=== PATIENT | female | born 1985 | race Caucasian/White ===

== ENCOUNTER 2020-10-11 05:33 | Inpatient (IN) ==
[2020-10-11] MEDS ORDERED: *HR* Midazolam HCl 5 MG/5 ML VIAL IVP ONE ×2 (10:10→10:11)
[2020-10-11] MEDS ORDERED: Artificial Tears SOLN 15 ML BOTTLE BOTH EYES PRN (10:16)
[2020-10-11] MEDS ORDERED: Naloxone 0.4 MG/ML INJ IVP PRN (10:16)
[2020-10-11] MEDS ORDERED: Perflutren Lipid Microsphere 1.3 ML in 0.9 % Sodium Chloride 8.7 ML IVP PRN (10:22)
[2020-10-11] MEDS ORDERED: Vancomycin 0 MG in 0.9 % Sodium Chloride 250 ML IVPB SCH (11:00)
[2020-10-11 11:10] LABS: Basophils % 0.2 %; Eosinophils % 0.1 %; Hematocrit 41.3 % (35.3-44.9); Hemoglobin 14.5 g/dL (11.5-15.4); Immature Granulocytes % 1.2 % (0-4); Lymphocytes # 1.1 K/mcL (0.6-4.6); Lymphocytes % 6.2 %; Mean Corpuscular HGB Conc 35.1 g/dL (31.6-35.5); Mean Corpuscular Hemoglobin 31.1 pg (28.0-33.3); Mean Corpuscular Volume 88.6 fL (83.0-100.0); Mean Platelet Volume 9.7 fL (9.4-12.4); Monocytes # 1.5 K/mcL (0.0-1.3); Monocytes % 8.6 %; Neutrophils # 14.2 K/mcL (1.6-8.9); Nucleated Red Blood Cells 0.2 /100 WBC (0); Platelet Count 160 K/mcL (140-400); Red Blood Count 4.66 M/mcL (3.82-4.97); Red Cell Distribution Width 12.5 % (11.5-14.5); Segmented Neutrophils % 83.7 %
[2020-10-11] MEDS: Artificial Tears SOLN 15 ML BOTTLE BOTH EYES SCH ×4 (11:17→23:38)
[2020-10-11 11:18] LABS: INR 1.9; Prothrombin Time 21.3 Seconds (9.4-12.1)
[2020-10-11] MEDS ORDERED: *HR* Heparin 5,000 UNIT/ML VIAL IVP ONE (11:19)
[2020-10-11] MEDS ORDERED: *HR* Heparin 5,000 UNIT/ML VIAL IVP PRN ×2 (11:19)
[2020-10-11 11:20] LABS: Activated Partial Thrombo Time 30.7 Seconds (26.0-36.0)
[2020-10-11] MEDS: Midazolam HCl 50 MG/100 ML IV.SOLN IVC SCH (11:21)
[2020-10-11 11:24] LABS: Acetaminophen < 10 mcg/mL (10-20); Salicylate < 2.5 mg/dL (15.0-30.0)
[2020-10-11] MEDS ORDERED: *HR* Dextrose 50 % in Water (Vial) 50 ML VIAL ONE (11:29)
[2020-10-11] MEDS ORDERED: Heparin 25,000UNIT/250ML 1/2NS 25,000 UNIT/250 ML IV.SOLN IVC SCH (11:30)
[2020-10-11 11:31] LABS: Alanine Aminotransferase 43 Units/L (7-52); Albumin/Globulin Ratio 1.6 (1.1-2.2); Alkaline Phosphatase 101 Units/L (34-104); Aspartate Amino Transferase 170 Units/L (13-39); BUN/Creatinine Ratio 12 (6-26); Bilirubin,Direct 0.4 mg/dL (0.0-0.2); Bilirubin,Indirect 0.5 mg/dL (0.0-1.0); Bilirubin,Total 0.9 mg/dL (0.3-1.0); Blood Urea Nitrogen 17 mg/dL (6-20); Calcium 8.5 mg/dL (8.6-10.3); Carbon Dioxide 17 mEq/L (23-29); Chloride 114 mEq/L (98-107); Globulin 2.5 g/dL (2.4-3.5); Glucose 56 mg/dL (70-105); Magnesium 1.9 mg/dL (1.6-2.6); Osmolality,Calculated 297 (280-300); Phosphorous 1.3 mg/dL (2.7-4.5); Potassium 3.2 mEq/L (3.5-5.1); Sodium 144 mEq/L (136-145); Total Protein 6.5 g/dL (6.4-8.9); Transferrin 208 mg/dL (203-362); eGFR For African Americans 52 (> 60); eGFR For Non-African Americans 43 (> 60)
[2020-10-11 11:44] LABS: ABG Base Excess -8 mEq/L (-2 to 3); ABG HCO3 16 mEq/L (21-27); ABG Oxygen Saturation 96 % (95-98); ABG PCO2 29 mmHg (35-45); ABG PH 7.35 pH Units (7.32-7.45); ABG PO2 83 mmHg (85-104); ABG TCO2 17 mEq/L (20-26); Blood Gas Modality ASSIST CONTROL; Blood Gas VT 500 cc
[2020-10-11 11:44] LABS: Creatine Kinase 3107 Units/L (30-223)
[2020-10-11 11:47] LABS: Ferritin > 1500 ng/mL (10-120)
[2020-10-11 11:54] LABS: Bacteria,Urine Few per hpf (None-Few); Bilirubin,Urine Negative (Negative); Blood,Urine Large (Negative); Clarity,Urine Turbid (Clear); Color,Urine Yellow (Yellow); Glucose,Urine (UA) Normal (Normal); Ketones,Urine 10 mg/dL (Negative); Leukocyte Esterase,Urine Negative (Negative); Mucus,Urine Few per lpf (None-Few); Nitrite,Urine Negative (Negative); Protein,Urine 100 mg/dL (Neg-Trace); Specific Gravity,Urine 1.025 (1.010-1.025); Squamous Epithelial Cell,Urine Few per hpf (None-Few); Urobilinogen,Urine Normal (Normal)
[2020-10-11] MEDS ORDERED: Dextrose Gel 15 GM/37.5 ML TUBE PO PRN ×2 (12:00)
[2020-10-11] MEDS ORDERED: D5% in Water 1,000 ML IVC PRN (12:00)
[2020-10-11] MEDS ORDERED: *HR* Dextrose 50 % in Water (Vial) 50 ML VIAL IVP PRN (12:00)
[2020-10-11] MEDS ORDERED: Potassium Phosphate 44 MEQ in 0.9 % Sodium Chloride 250 ML IVPB ONE ×2 (12:01→17:37)
[2020-10-11] MEDS: Sodium Bicarbonate 150 MEQ in D5% in Water 1,000 ML IVC SCH ×2 (12:40→18:53)
[2020-10-11] MEDS: Aspirin 81 MG TAB.CHEW PO SCH (12:44)
[2020-10-11 12:48] LABS: Hematocrit 44.9 % (35.3-44.9); Mean Corpuscular HGB Conc 33.4 g/dL (31.6-35.5); Mean Corpuscular Hemoglobin 29.7 pg (28.0-33.3); Mean Corpuscular Volume 88.9 fL (83.0-100.0); Mean Platelet Volume 9.6 fL (9.4-12.4); Platelet Count 139 K/mcL (140-400); Red Blood Count 5.05 M/mcL (3.82-4.97); Red Cell Distribution Width 12.7 % (11.5-14.5); White Blood Count 14.6 K/mcL (4.3-11.1)
[2020-10-11] MEDS: FentaNYL (PF) 1,000 MCG/100 ML IV.SOLN IVC SCH ×2 (13:35→20:02)
[2020-10-11] MEDS: Piperacillin/Tazobactam 3.375 GM in 0.9 % Sodium Chloride Mini Bag 100 ML IVPB SCH ×2 (15:25→23:37)
[2020-10-11 16:45] LABS: BUN/Creatinine Ratio 16 (6-26); Blood Urea Nitrogen 18 mg/dL (6-20); Calcium 7.7 mg/dL (8.6-10.3); Carbon Dioxide 21 mEq/L (23-29); Chloride 113 mEq/L (98-107); Glucose 141 mg/dL (70-105); Osmolality,Calculated 298 (280-300); Potassium 2.7 mEq/L (3.5-5.1); Sodium 142 mEq/L (136-145); eGFR For African Americans > 60 (> 60); eGFR For Non-African Americans 54 (> 60)
[2020-10-11 17:34] LABS: Phosphorous 1.5 mg/dL (2.7-4.5)
[2020-10-11 17:36] LABS: Troponin I 2.77 ng/mL (< 0.04)
[2020-10-11] MEDS ORDERED: Potassium Chloride 40 MEQ, Lidocaine 1% 2 ML in 0.9 % Sodium Chloride 500 ML IVPB ONE (17:37)
[2020-10-11] MEDS ORDERED: Calcium Gluconate 1gm/50mL 1 GM/50 ML BAG IVPB ONE (17:37)
[2020-10-11] MEDS: Famotidine 20 MG/2 ML VIAL IVP SCH (17:39)
[2020-10-11] MEDS: Chlorhexidine Rinse 15 ML MOUTHWASH MM SCH (20:14)
[2020-10-12] MEDS ORDERED: Vancomycin 1,250 MG/262.5 ML IV.SOLN IVPB SCH
[2020-10-12] MEDS: Midazolam HCl 50 MG/100 ML IV.SOLN IVC SCH ×2 (01:02→06:56)
[2020-10-12] MEDS: Sodium Bicarbonate 150 MEQ in D5% in Water 1,000 ML IVC SCH ×2 (01:03→06:35)
[2020-10-12 02:01] LABS: VBG Ionized Calcium 0.79 mmol/L (1.15-1.35)
[2020-10-12 02:12] LABS: Activated Partial Thrombo Time 103.4 Seconds (26.0-36.0)
[2020-10-12 02:13] LABS: INR 4.8
[2020-10-12 02:14] LABS: Prothrombin Time 53.1 Seconds (9.4-12.1)
[2020-10-12] MEDS: FentaNYL (PF) 1,000 MCG/100 ML IV.SOLN IVC SCH ×3 (02:22→17:36)
[2020-10-12 02:24] LABS: BUN/Creatinine Ratio 14 (6-26); Blood Urea Nitrogen 14 mg/dL (6-20); Calcium 6.7 mg/dL (8.6-10.3); Carbon Dioxide 25 mEq/L (23-29); Chloride 107 mEq/L (98-107); Glucose 131 mg/dL (70-105); Magnesium 1.4 mg/dL (1.6-2.6); Osmolality,Calculated 296 (280-300); Phosphorous 3.7 mg/dL (2.7-4.5); Potassium 2.9 mEq/L (3.5-5.1); Sodium 142 mEq/L (136-145); Troponin I 2.35 ng/mL (< 0.04); eGFR For African Americans > 60 (> 60); eGFR For Non-African Americans > 60 (> 60)
[2020-10-12] MEDS ORDERED: Calcium Gluconate 1gm/50mL 1 GM/50 ML BAG IVPB PRN ×2 (02:27→10:25)
[2020-10-12 02:38] LABS: Creatine Kinase 5514 Units/L (30-223)
[2020-10-12] MEDS: Calcium Gluconate 1gm/50mL 1 GM/50 ML BAG IVPB PRN ×2 (02:43→04:00)
[2020-10-12] MEDS: Artificial Tears SOLN 15 ML BOTTLE BOTH EYES SCH ×5 (03:36→19:48)
[2020-10-12 03:53] LABS: Immature Granulocytes % 0.6 % (0-4)
[2020-10-12 03:55] LABS: Hematocrit 26.3 % (35.3-44.9); Hemoglobin 8.7 g/dL (11.5-15.4); Immature Platelets 2.8 % (1.1-6.1); Lymphocytes # 0.9 K/mcL (0.6-4.6); Lymphocytes % 10.8 %; Mean Corpuscular HGB Conc 33.1 g/dL (31.6-35.5); Mean Corpuscular Hemoglobin 30.6 pg (28.0-33.3); Mean Corpuscular Volume 92.6 fL (83.0-100.0); Mean Platelet Volume 9.7 fL (9.4-12.4); Monocytes # 0.2 K/mcL (0.0-1.3); Monocytes % 2.3 %; Neutrophils # 7.5 K/mcL (1.6-8.9); Nucleated Red Blood Cells 0.5 /100 WBC (0); Red Blood Count 2.84 M/mcL (3.82-4.97); Segmented Neutrophils % 86.3 %; White Blood Count 8.7 K/mcL (4.3-11.1)
[2020-10-12 04:21] LABS: Platelet Count 42 K/mcL (140-400)
[2020-10-12 04:23] LABS: Platelet Estimate Decreased (Normal)
[2020-10-12 04:38] LABS: ABG Base Excess 3 mEq/L (-2 to 3); ABG HCO3 24 mEq/L (21-27); ABG Oxygen Saturation 96 % (95-98); ABG PCO2 27 mmHg (35-45); ABG PH 7.56 pH Units (7.32-7.45); ABG PO2 66 mmHg (85-104); ABG TCO2 25 mEq/L (20-26); Blood Gas Modality ASSIST CONTROL; Blood Gas VT 500 cc
[2020-10-12] MEDS: Dexmedetomidine HCl 400 MCG/100 ML MLS IVC SCH ×3 (04:40→21:30)
[2020-10-12] MEDS: Famotidine 20 MG/2 ML VIAL IVP SCH ×2 (05:10→17:18)
[2020-10-12] MEDS: Chlorhexidine Rinse 15 ML MOUTHWASH MM SCH ×2 (07:18→19:48)
[2020-10-12] MEDS: Piperacillin/Tazobactam 3.375 GM in 0.9 % Sodium Chloride Mini Bag 100 ML IVPB SCH ×2 (07:18→15:57)
[2020-10-12] MEDS: Aspirin 81 MG TAB.CHEW PO SCH (07:18)
[2020-10-12] MEDS ORDERED: 0.9 % Sodium Chloride 1,000 ML IVC SCH (10:00)
[2020-10-12 10:06] LABS: VBG Ionized Calcium 0.89 mmol/L (1.15-1.35)
[2020-10-12 10:24] LABS: Activated Partial Thrombo Time 36.9 Seconds (26.0-36.0)
[2020-10-12 10:27] LABS: INR 5.5; Magnesium 1.8 mg/dL (1.6-2.6); Phosphorous 5.5 mg/dL (2.7-4.5)
[2020-10-12] MEDS ORDERED: Magnesium Sulfate 1 GM/102 ML PIGGYBACK IVPB ONE (10:29)
[2020-10-12 10:43] LABS: Creatine Kinase 5917 Units/L (30-223); Lactate Dehydrogenase > 3600 Units/L (140-271)
[2020-10-12 10:44] LABS: Alanine Aminotransferase > 5000 Units/L (7-52); Albumin/Globulin Ratio 1.6 (1.1-2.2); Alkaline Phosphatase 102 Units/L (34-104); Aspartate Amino Transferase > 3000 Units/L (13-39); BUN/Creatinine Ratio 11 (6-26); Bilirubin,Direct 1.4 mg/dL (0.0-0.2); Bilirubin,Indirect 1.3 mg/dL (0.0-1.0); Bilirubin,Total 2.7 mg/dL (0.3-1.0); Blood Urea Nitrogen 14 mg/dL (6-20); Calcium 7.1 mg/dL (8.6-10.3); Carbon Dioxide 28 mEq/L (23-29); Chloride 104 mEq/L (98-107); Globulin 1.9 g/dL (2.4-3.5); Glucose 79 mg/dL (70-105); Osmolality,Calculated 291 (280-300); Sodium 141 mEq/L (136-145); Total Protein 4.9 g/dL (6.4-8.9); eGFR For African Americans 56 (> 60); eGFR For Non-African Americans 46 (> 60)
[2020-10-12] MEDS ORDERED: D5 IVC ONE (11:00)
[2020-10-12] MEDS ORDERED: ACETYLCYSTEINE IVC ONE (11:00)
[2020-10-12] MEDS ORDERED: WATER IVC ONE (11:00)
[2020-10-12] MEDS: D5% in 0.45% NACL w KCl 20 MEQ/1,000 ML MLS IVC SCH ×2 (11:09→17:37)
[2020-10-12 11:25] LABS: Basophils % 0.1 %; Monocytes % 3.5 %
[2020-10-12 11:27] LABS: Hematocrit 41.2 % (35.3-44.9); Hemoglobin 14.6 g/dL (11.5-15.4); Immature Granulocytes % 0.8 % (0-4); Immature Platelets 4.2 % (1.1-6.1); Lymphocytes # 0.8 K/mcL (0.6-4.6); Lymphocytes % 4.5 %; Mean Corpuscular HGB Conc 35.4 g/dL (31.6-35.5); Mean Corpuscular Hemoglobin 31.1 pg (28.0-33.3); Mean Corpuscular Volume 87.7 fL (83.0-100.0); Mean Platelet Volume 10.2 fL (9.4-12.4); Monocytes # 0.6 K/mcL (0.0-1.3); Nucleated Red Blood Cells 0.4 /100 WBC (0); Red Cell Distribution Width 12.6 % (11.5-14.5); Segmented Neutrophils % 91.1 %; White Blood Count 17.1 K/mcL (4.3-11.1)
[2020-10-12] MEDS ORDERED: 0.9 % Sodium Chloride 250 ML ONE (11:29)
[2020-10-12 11:42] LABS: Neutrophils # 15.6 K/mcL (1.6-8.9); Platelet Count 83 K/mcL (140-400)
[2020-10-12] MEDS ORDERED: Acetylcysteine 3,300 MG in D5% in Water 500 ML IVC ONE (12:00)
[2020-10-12 12:07] LABS: Platelet Estimate Slight Decrease (Normal)
[2020-10-12 13:05] LABS: VBG HCO3 25 mEq/L (21-27); VBG PCO2 44 mmHg (41-51); VBG PH 7.36 pH Units (7.32-7.42); VBG PO2 73 mmHg (25-50)
[2020-10-12 13:25] LABS: Amylase 35 Units/L (29-103); Lipase 65 Units/L (11-82)
[2020-10-12 13:55] LABS: Hepatitis B Surface Antigen Nonreactive (Nonreactive)
[2020-10-12] MEDS ORDERED: Norepinephrine 4 MG/254 ML IV.SOLN IVC SCH (14:15)
[2020-10-12 14:24] LABS: Hepatitis B Core IgM Nonreactive (Nonreactive); Hepatitis C Virus Antibody Nonreactive (Nonreactive)
[2020-10-12 14:26] LABS: Hepatitis A Antibody IgM Nonreactive (Nonreactive)
[2020-10-12 15:39] LABS: Albumin 2.6 g/dL (3.5-5.7); Albumin/Globulin Ratio 1.7 (1.1-2.2); Alkaline Phosphatase 79 Units/L (34-104); Bilirubin,Direct 1.5 mg/dL (0.0-0.2); Bilirubin,Indirect 1.2 mg/dL (0.0-1.0); Bilirubin,Total 2.7 mg/dL (0.3-1.0); Globulin 1.5 g/dL (2.4-3.5); Magnesium 2.2 mg/dL (1.6-2.6); Phosphorous 5.4 mg/dL (2.7-4.5); Total Protein 4.1 g/dL (6.4-8.9)
[2020-10-12] MEDS ORDERED: Acetylcysteine 6,500 MG in D5% in Water 1,000 ML IVC ONE (16:00)
[2020-10-12 16:07] LABS: Red Cell Distribution Width 12.6 % (11.5-14.5)
[2020-10-12 16:09] LABS: Hemoglobin 11.4 g/dL (11.5-15.4); Immature Platelets 4.7 % (1.1-6.1); Mean Corpuscular HGB Conc 34.5 g/dL (31.6-35.5); Mean Corpuscular Hemoglobin 30.7 pg (28.0-33.3); Mean Corpuscular Volume 88.9 fL (83.0-100.0); Nucleated Red Blood Cells 0.4 /100 WBC (0); Red Blood Count 3.71 M/mcL (3.82-4.97); White Blood Count 15.7 K/mcL (4.3-11.1)
[2020-10-12 16:15] LABS: Platelet Count 65 K/mcL (140-400)
[2020-10-12 16:40] LABS: Lymphocytes # 1.6 K/mcL (0.6-4.6); Monocytes # 0.6 K/mcL (0.0-1.3); Neutrophils # 13.5 K/mcL (1.6-8.9)
[2020-10-12 16:41] LABS: Platelet Estimate Decreased (Normal)
[2020-10-12 17:50] LABS: BUN/Creatinine Ratio 9 (6-26); Blood Urea Nitrogen 17 mg/dL (6-20); Calcium 6.6 mg/dL (8.6-10.3); Carbon Dioxide 25 mEq/L (23-29); Chloride 103 mEq/L (98-107); Glucose 176 mg/dL (70-105); Osmolality,Calculated 296 (280-300); Sodium 140 mEq/L (136-145); eGFR For African Americans 37 (> 60); eGFR For Non-African Americans 30 (> 60)
[2020-10-12 17:51] LABS: Alanine Aminotransferase 4807 Units/L (7-52); Aspartate Amino Transferase > 3000 Units/L (13-39)
[2020-10-12 18:16] LABS: INR 2.8; Prothrombin Time 31.6 Seconds (9.4-12.1)
[2020-10-12 18:18] LABS: Activated Partial Thrombo Time 32.6 Seconds (26.0-36.0)
[2020-10-12] MEDS: Calcium Gluconate 1gm/50mL 1 GM/50 ML BAG IVPB SCH ×2 (18:28→21:12)
[2020-10-12] MEDS ORDERED: D5% in 0.45% NACL 1,000 ML IVC SCH (18:30)
[2020-10-12 20:29] LABS: Hematocrit 35.3 % (35.3-44.9); Hemoglobin 12.2 g/dL (11.5-15.4); Immature Platelets 4.8 % (1.1-6.1); Mean Corpuscular HGB Conc 34.6 g/dL (31.6-35.5); Mean Corpuscular Hemoglobin 30.3 pg (28.0-33.3); Mean Corpuscular Volume 87.8 fL (83.0-100.0); Mean Platelet Volume 9.8 fL (9.4-12.4); Nucleated Red Blood Cells 0.1 /100 WBC (0); Red Blood Count 4.02 M/mcL (3.82-4.97); Red Cell Distribution Width 12.2 % (11.5-14.5); White Blood Count 16.1 K/mcL (4.3-11.1)
[2020-10-12 20:30] LABS: Platelet Count 60 K/mcL (140-400)
[2020-10-12 20:37] LABS: INR 3.1; Prothrombin Time 34.3 Seconds (9.4-12.1)
[2020-10-12 20:39] LABS: Activated Partial Thrombo Time 32.6 Seconds (26.0-36.0)
[2020-10-12 20:41] LABS: Calcium 6.5 mg/dL (8.6-10.3); Potassium 3.7 mEq/L (3.5-5.1)
[2020-10-12 20:50] LABS: Monocytes # 0.3 K/mcL (0.0-1.3); Neutrophils # 14.8 K/mcL (1.6-8.9); Platelet Estimate Decreased (Normal)
[2020-10-12 21:15] VITALS: BP 97/76
[2020-10-12 21:30] LABS: Alanine Aminotransferase > 5000 Units/L (7-52); Albumin 2.9 g/dL (3.5-5.7); Albumin/Globulin Ratio 1.6 (1.1-2.2); Alkaline Phosphatase 91 Units/L (34-104); Aspartate Amino Transferase > 3000 Units/L (13-39); Bilirubin,Direct 1.7 mg/dL (0.0-0.2); Bilirubin,Indirect 1.1 mg/dL (0.0-1.0); Bilirubin,Total 2.8 mg/dL (0.3-1.0); Globulin 1.8 g/dL (2.4-3.5); Magnesium 2.1 mg/dL (1.6-2.6); Phosphorous 4.8 mg/dL (2.7-4.5); Total Protein 4.7 g/dL (6.4-8.9)
== END 2020-10-12 22:10 | disposition short-term general hospital (02) | DRG 720 ==
LOC: ICNU 10:02
PROVIDERS: ADMIT Student in an Organized Health Care Education/Training Program; ATTEND Student in an Organized Health Care Education/Training Program

== ENCOUNTER 2020-11-06 11:06 | Observation (INO) ==
[2020-11-06 11:55] LABS: Bilirubin,Urine Negative (Negative); Blood,Urine Negative (Negative); Clarity,Urine Clear (Clear); Color,Urine Colorless (Yellow); Glucose,Urine (UA) Normal (Normal); Ketones,Urine Negative (Negative); Leukocyte Esterase,Urine Negative (Negative); Nitrite,Urine Negative (Negative); PH,Urine 6.5 pH Units (5.0-8.0); Protein,Urine Negative (Neg-Trace); Specific Gravity,Urine 1.007 (1.010-1.025); Urobilinogen,Urine Normal (Normal)
[2020-11-06] MEDS ORDERED: Naloxone 0.4 MG/ML INJ IVP PRN (12:16)
[2020-11-06 12:46] LABS: Calcium 9.2 mg/dL (8.6-10.3); Potassium 4.8 mEq/L (3.5-5.1)
[2020-11-06 13:24] LABS: Hematocrit 23.8 % (35.3-44.9); Mean Corpuscular HGB Conc 33.6 g/dL (31.6-35.5); Mean Corpuscular Hemoglobin 32.4 pg (28.0-33.3); Mean Corpuscular Volume 96.4 fL (83.0-100.0); Mean Platelet Volume 9.3 fL (9.4-12.4); Platelet Count 175 K/mcL (140-400); Red Blood Count 2.47 M/mcL (3.82-4.97); Red Cell Distribution Width 13.7 % (11.5-14.5); White Blood Count 6.3 K/mcL (4.3-11.1)
[2020-11-06] MEDS: *HR* Heparin 5,000 UNIT/ML VIAL SQ SCH (17:16)
[2020-11-06] MEDS ORDERED: polyethylene glycoL 3350 17 GM POWD.PACK PO PRN (22:24)
[2020-11-06] MEDS ORDERED: polyethylene glycoL 3350 17 GM POWD.PACK PO SCH (23:00)
[2020-11-07] MEDS: carvediloL 6.25 MG TABLET PO SCH ×2 (00:02→07:47)
[2020-11-07] MEDS: *HR* Heparin 5,000 UNIT/ML VIAL SQ SCH (05:12)
[2020-11-07 05:32] LABS: Basophils % 0.6 %; Eosinophils # 0.2 K/mcL (0.0-0.6); Eosinophils % 3.7 %; Hematocrit 25.3 % (35.3-44.9); Hemoglobin 8.3 g/dL (11.5-15.4); Immature Granulocytes % 0.5 % (0-4); Lymphocytes # 1.9 K/mcL (0.6-4.6); Lymphocytes % 30.7 %; Mean Corpuscular HGB Conc 32.8 g/dL (31.6-35.5); Mean Corpuscular Hemoglobin 31.3 pg (28.0-33.3); Mean Corpuscular Volume 95.5 fL (83.0-100.0); Mean Platelet Volume 9.4 fL (9.4-12.4); Monocytes # 0.5 K/mcL (0.0-1.3); Monocytes % 7.8 %; Neutrophils # 3.6 K/mcL (1.6-8.9); Platelet Count 208 K/mcL (140-400); Red Blood Count 2.65 M/mcL (3.82-4.97); Red Cell Distribution Width 13.9 % (11.5-14.5); Segmented Neutrophils % 56.7 %; White Blood Count 6.3 K/mcL (4.3-11.1)
[2020-11-07 05:51] LABS: Calcium 8.9 mg/dL (8.6-10.3); Potassium 4.8 mEq/L (3.5-5.1)
[2020-11-07] MEDS ORDERED: NIFEdipine XL (24 HR) 60 MG TAB.ER.24 PO SCH (09:00)
[2020-11-07] MEDS ORDERED: Topiramate 25 MG TABLET PO SCH (09:00)
[2020-11-07 12:52] LABS: INR 1.1; Prothrombin Time 12.6 Seconds (9.4-12.1)
[2020-11-07] MEDS ORDERED: SUMAtriptan succinate 50 MG TABLET PO SCH (13:00)
[2020-11-07 15:09] LABS: Folate 4.7 ng/mL (3.0-16.0)
[2020-11-07] MEDS ORDERED: Ondansetron ODT 4 MG TAB.RAPDIS SL ONE (15:14)
[2020-11-07 15:30] VITALS: BP 128/91
[2020-11-07] MEDS ORDERED: carvediloL 6.25 MG TABLET PO SCH (17:00)
== END 2020-11-07 16:33 | disposition left against medical advice (07) ==
LOC: EMEROOARM 11:06 → 2ANU 11:06 → SUATTDRO 16:05 → 2ANU 16:35
PROVIDERS: ADMIT Student in an Organized Health Care Education/Training Program; ATTEND General Practice